=== PATIENT | male | born 1960 | race Caucasian/White ===

== ENCOUNTER 2018-08-27 11:08 | Emergency (ER) | payer OTHER, SELFPAY ==
[2018-08-27 11:11] VITALS: BP 183/98; PULSE 78; RESP 18; TEMP 37.2; O2SAT 99; BMI 29.8
[2018-08-27 11:54] LABS: Add Manual Diff / Slide Review NO; Eosinophils Percent Auto 1.3 % (2-4); Hematocrit 47.6 % (41-53); Hemoglobin 16.8 g/dL (13.5-17.5); Lymphocytes Percent Auto 26.1 % (25-40); Mean Corpuscular HGB Conc 35.2 % (30-36); Mean Corpuscular Hemoglobin 34.9 PG (26-34); Mean Corpuscular Volume 99.1 fL (80-100); Monocytes Percent Auto 8.4 % (3-14); Neutrophils Absolute Auto 5100 /uL (3000-5900); Neutrophils Percent Auto 63.2 % (50-75); Platelet Count 145 X10^3/uL (150-400); Red Cell Distribution Width 12.8 % (11.6-14.8); White Blood Cell Count 8.1 X10^3/uL (4.5-11.0)
[2018-08-27 11:55] LABS: Prothrombin Time 10.6 SECONDS (10.1-12.7)
[2018-08-27] MEDS: PANTOPRAZOLE 40 MG VIAL IV (11:55)
[2018-08-27 11:58] LABS: PTT Partial Thromboplastin Tim 29 SECONDS (26.4-36.2)
[2018-08-27 12:00] LABS: Alanine Aminotransferase 60 IU/L (21-72); Albumin 4.8 g/dL (3.5-5.0); Albumin Globulin Ratio 1.5 (1.0-2.8); Alkaline Phosphatase 72 U/L (38-126); Aspartate Aminotransferase 53 IU/L (17-59); Bilirubin Total 1.3 mg/dL (0.2-1.3); Blood Urea Nitrogen 14 mg/dL (9-20); Calcium 9.6 mg/dL (8.4-10.2); Carbon Dioxide 30 mmol/L (22-32); Chloride 103 mmol/L (98-107); Estimated Glomerular Filt Rate > 60.0 mL/min (>60); Globulin 3.2 g/dL (1.7-4.1); Glucose 97 mg/dL (70-100); HEMOLYSIS < 15 (0-50); Sodium 143 mmol/L (137-145)
--- NOTE | 2018-08-27 12:07 | ED.ABDPAIN ---
HPI - Abdominal Pain General Chief Complaint: Abdominal Pain Stated Complaint: VOMITING/BLOOD IN STOOL Time Seen by Provider: 08/27/18 11:18 Source: patient Mode of arrival: ambulatory Limitations: no limitations History of Present Illness HPI narrative: Patient is a 57-year-old male who presents with on rectal bleeding. He thought he had food poisoning last night he threw up 1 time and then he had 2 episodes of diarrhea. He said he did not look at the toilet at that time. This morning he had another episode of cramping and diarrhea a is bright red blood. No he did not have any hematemesis. He does drink on alcohol for vodka sodas a day. He also has been taking some ibuprofen but as prescribed for his back. He denies dizziness lightheadedness or shortness of breath MD complaint: abdominal pain Related Data Home Medications Medication Instructions Recorded Confirmed ibuprofen 400 mg PO QID PRN 08/27/18 08/27/18 omeprazole 20 mg PO DAILY 08/27/18 08/27/18 Allergies Allergy/AdvReac Type Severity Reaction Status Date / Time No Known Drug Allergies Allergy Verified 08/27/18 11:14 Review of Systems Review of Systems All systems reviewed & are unremarkable except as noted in HPI and below Constitutional Denies chills, Denies fever(s), Denies lethargy and Denies weakness Cardiovascular Denies chest pain, Denies irregular heart rhythm, Denies lightheadedness, Denies palpitations, Denies dyspnea, Denies dyspnea on exertion and Denies orthopnea Respiratory Denies cough, Denies dyspnea, Denies dyspnea on exertion and Denies wheezing Gastrointestinal Gastrointestinal: Reports as per HPI Genitourinary Denies hematuria, Denies flank pain, Denies urinary incontinence and Denies urinary urgency Musculoskeletal Denies back pain, Denies muscle weakness, Denies numbness and Denies tingling Integumentary/Breasts Denies pruritus, Denies erythema, Denies rash and Denies wounds Neurologic Denies numbness, Denies tingling and Denies weakness Endocrine Denies palpitations Allergic/Immunologic Denies wheezing PFSH Medical History Chronic back pain (Acute) Family History Father Diabetes mellitus Lupus Grandmother Colon cancer Social History Smoking Status: Never smoker Exam Initial Vital Signs Initial Vital Signs: Vital Signs Temperature 99.0 F 08/27/18 11:11 Pulse Rate 78 08/27/18 11:11 Respiratory Rate 18 09/29/18 11:11 Blood Pressure 183/98 H 08/27/18 11:11 Pulse Oximetry 99 08/27/18 11:11 Const General: cooperative and well developed Nutritional Appearance: well nourished Orientation: alert, awake, oriented x3 and not confused [facility] Head: normal to inspection and normocephalic Eyes General: appearance normal, both eyes and all related structures Neck Neck: normal visual inspection Chest Chest: normal inspection of the chest Resp Effort & Inspection: normal respiratory effort and able to speak in complete sentences Auscultation: clear to auscultation bilaterally Cardio Rate: regular rate Rhythm: regular rhythm Heart Sounds: S1 normal and S2 normal GI Rectal Exam: visual inspection normal and normal sphincter tone Other: No stool Back/Spine/Pelvis Back: normal to inspection Neuro General: alert, oriented x3, gait normal and no focal motor deficits Speech: speech normal Course Orders Ordered: ED Orders 08/27/18 11:35 Complete Blood Count AUTO DIFF Stat Comprehensive Metabolic Panel Stat Partial Thromboplastin Time Stat Prothrombin Time INR Stat Type and Screen Stat Discontinued Medications Pantoprazole Sodium (Protonix) 40 mg IV NOW ONE Stop: 08/27/18 11:47 Last Admin: 08/27/18 11:55 Dose: 40 mg Vital Signs - 8 hr 08/27/18 11:11 08/27/18 12:30 08/27/18 13:00 Temperature 99.0 F Pulse Rate 78 71 67 Respiratory Rate 18 15 20 Blood Pressure 183/98 H 152/87 H Blood Pressure [Left Arm] 157/91 H Pulse Oximetry 99 96 97 MDM - Abdominal Pain Lab Data Attestation: I reviewed the patient's lab results. Result diagrams: 08/27/18 11:35 08/27/18 11:35 Lab Results 08/27/18 08/27/18 08/27/18 Range/Units 11:35 11:35 11:35 WBC 8.1 (4.5-11.0) X10^3/uL RBC 4.80 (4.5-5.9) X10^6/uL Hgb 16.8 (13.5-17.5) g/dL Hct 47.6 (41-53) % MCV 99.1 (80-100) fL MCH 34.9 H (26-34) PG MCHC 35.2 (30-36) % RDW 12.8 (11.6-14.8) % Plt Count 145 L (150-400) X10^3/uL Neut % (Auto) 63.2 (50-75) % Lymph % (Auto) 26.1 (25-40) % [place] % (Auto) 8.4 (3-14) % Eos % (Auto) 1.3 L (2-4) % Baso % (Auto) 1.0 (0-2) % Neut # (Auto) 5100 (7181-7944) /uL PT 10.6 (10.1-12.7) SECONDS INR 1.0 (0.9-1.3) APTT 29 (26.4-36.2) SECONDS Sodium 143 (137-145) mmol/L Potassium 4.0 (3.4-5.1) mmol/L Chloride 103 (98-107) mmol/L Carbon Dioxide 30 (22-32) mmol/L BUN 14 (9-20) mg/dL Creatinine 1.00 (0.66-1.25) mg/dL Estimated GFR > 60.0 (>60) mL/min BUN/Creatinine Ratio 14.0 (6-22) Glucose 97 (70-100) mg/dL Calcium 9.6 (8.4-10.2) mg/dL Total Bilirubin 1.3 (0.2-1.3) mg/dL AST 53 (17-59) IU/L ALT 60 (21-72) IU/L Alkaline Phosphatase 72 (38-126) U/L Total Protein 8.0 (6.3-8.2) g/dL Albumin 4.8 (3.5-5.0) g/dL Globulin 3.2 (1.7-4.1) g/dL Albumin/Globulin Ratio 1.5 (1.0-2.8) Blood Type Antibody Screen 08/27/18 Range/Units 11:35 WBC (4.5-11.0) X10^3/uL RBC (4.5-5.9) X10^6/uL Hgb (13.5-17.5) g/dL Hct (41-53) % MCV (80-100) fL MCH (26-34) PG MCHC (30-36) % RDW (11.6-14.8) % Plt Count (150-400) X10^3/uL Neut % (Auto) (50-75) % Lymph % (Auto) (25-40) % [place] % (Auto) (3-14) % Eos % (Auto) (2-4) % Baso % (Auto) (0-2) % Neut # (Auto) (7656-2275) /uL PT (10.1-12.7) SECONDS INR (0.9-1.3) APTT (26.4-36.2) SECONDS Sodium (137-145) mmol/L Potassium (3.4-5.1) mmol/L Chloride (98-107) mmol/L Carbon Dioxide (22-32) mmol/L BUN (9-20) mg/dL Creatinine (0.66-1.25) mg/dL Estimated GFR (>60) mL/min BUN/Creatinine Ratio (6-22) Glucose (70-100) mg/dL Calcium (8.4-10.2) mg/dL Total Bilirubin (0.2-1.3) mg/dL AST (17-59) IU/L ALT (21-72) IU/L Alkaline Phosphatase (38-126) U/L Total Protein (6.3-8.2) g/dL Albumin (3.5-5.0) g/dL Globulin (1.7-4.1) g/dL Albumin/Globulin Ratio (1.0-2.8) Blood Type A Positive Antibody Screen Negative MDM Narrative Medical decision making narrative: Patient is hemodynamically stable hemoglobin hematocrit is are within normal limits. There was no blood in the rectum or signs of bleeding. No hemorrhoids. Discussed warning signs with patient and when to return to the ED. Patient is agreeable. Discharge Plan Departure Patient Disposition: Home Clinical Impression: Bright red rectal bleeding Discharge Date/Time: 08/27/18 13:01 Interventions: ED Discharge Assessment Last Done: 08/27/18 13:00 Instructions: Gastrointestinal Bleeding Activity Restrictions/Additional Instructions: *You have been diagnosed with rectal bleeding *What to do: At this time blood work and vitals are within normal limits. Recommend monitoring at home expect to have 1 or 2 more bloody episodes but really should start to decrease *Continue to take medications as directed -do not take ibuprofen while having rectal bleeding *Follow up with your primary care provider in 2-3 days *Return to ER if you should have significantly more bloody stool, dizziness, lightheadedness, shortness of breath [or] any new, worsening or concerning symptoms Prescriptions: No Action ibuprofen 400 mg Tablet 400 mg PO QID PRN (Reason: Back Pain) RF: 0 omeprazole 20 mg Capsule,Delayed Release(Dr/Ec) 20 mg PO DAILY RF: 0 Referrals: Renato Don ARNP [Primary Care Provider] -
[2018-08-27 12:30] VITALS: BP 157/91; PULSE 71; RESP 15; O2SAT 96
[2018-08-27 13:00] VITALS: BP 152/87; PULSE 67; RESP 20; O2SAT 97
== END 2018-08-27 13:01 | disposition home or self-care (01) ==
PROVIDERS: Emergency Provider Emergency Medicine; PCP Nurse Practitioner
DX: K62.5 Hemorrhage of anus and rectum (principal)
CPT/HCPCS: 36591; 80053; 85025; 85610; 85730; 86850; 86900; 86901; 96374; 99282; 99284; C9113

== ENCOUNTER 2018-11-18 07:45 | Day surgery (SDC) | payer OTHER, SELFPAY ==
--- NOTE | 2018-11-18 | PATH_ITS ---
[facility] Accession Number: [id number] . 01 Material submitted: . HEPATIC FLEXURE POLYP . 02 Diagnosis: Hepatic Flexure Polyp: Small serrated lesion, favor sessile serrated adenoma. [facility]/11/21/2018 . 02 Electronically signed: . Jack Palomino MD, PhD, Pathologist NPI- [id number] . 01 Gross description: . Received in one formalin-filled container labeled with the patient's name and labeled hepatic flexure polyp, are four less than 0.1 cm to 0.4 cm portions of tissue, entirely submitted in one cassette. ([id number]) /FRR . 02 Pathologist provided ICD-10: D12.3 . 02 CPT . 696646 Performed at: 01 [facility] [address] [id number] MD Chris Barone MD Phone: [phone] Performed at: 02 [facility] [address] [place] [id number] MD Chanel Anna MD Phone: [phone]
[2018-11-18 08:02] VITALS: BP 153/103; PULSE 86; RESP 12; TEMP 36.4; O2SAT 95; BMI 29.8
[2018-11-18 08:09] VITALS: BMI 29.8
[2018-11-18] MEDS: SODIUM CHLORIDE 0.9% 1,000 ML 200 ML IV (09:24)
--- NOTE | 2018-11-18 09:24 | PM.HP.1 ---
History of Present Illness Date Patient Seen: 11/18/18 Time Patient Seen: 09:24 Chief complaint: colonoscopy; [id number] Narrative: Patient is a gentleman here for a screening colonoscopy. He has some rectal bleeding. It is intermittent. He thinks he may have hemorrhoids. First colonoscopy Patient History Medical History Chronic back pain (Chronic) HTN (hypertension) (Chronic) Surgical History H/O hemorrhoidectomy (Resolved) Family & Social History Family History: Reviewed 11/18/18 by Nakul Prather MD Social History: household members children Tobacco & Substance use: Smoking Status Never smoker alcohol intake current alcohol intake frequency 3 or more drinks per day Substance Use Type does not use Meds Home Medications Medication Instructions Recorded Confirmed Type ibuprofen 400 mg PO QID PRN 08/27/18 11/18/18 History omeprazole 20 mg PO DAILY 08/27/18 11/18/18 History lisinopril 10 mg PO DAILY 11/18/18 11/18/18 History Allergies Allergy/AdvReac Type Severity Reaction Status Date / Time No Known Drug Allergies Allergy Verified 08/27/18 11:14 Review of Systems Review of Systems All systems reviewed & are unremarkable except as noted in HPI and below Cardiovascular Comments: Has hypertension Gastrointestinal Comments: Has reflux disease Exam Vital Signs (past 8 hours): - 11/18/18 08:02 Temperature 97.5 F L Pulse Rate 86 Respiratory Rate 12 Blood Pressure 153/103 H Pulse Oximetry 95 Oxygen Delivery Method Room Air Narrative Exam Narrative: Co Operative no apparent distress. Lungs are clear to auscultation no rales or rhonchi. Heart regular rate and rhythm without murmur gallop. Abdomen is soft nontender without mass. Alert and oriented x3. Assessment & Plan Plan: Assessment/Plan Narrative: Patient for screening colonoscopy/the evaluation for rectal bleeding. This is his 1st exam. I have discussed the procedure and the rationale with the patient including risks of bleeding, perforation which would necessitate a major operation, failure to find remove all lesions and the potential to tattoo. They appeared to understand and wished to proceed.
--- NOTE | 2018-11-18 09:27 | PM.PREOP ---
Pre-operative Note Interval Note Pre-op Check: Yes History & Physical exam performed today by Physician Changes: No ASA Class (for procedural sedation): II
--- NOTE | 2018-11-18 09:58 | PM.OP.ENDO ---
Operative Date/Time/Diagnoses Date of procedure: 11/18/18 Time of procedure: 09:58 Pre-op diagnosis: Screening examination. History of rectal bleeding. Post-op diagnosis: same (Removed 1 polyp in the hepatic flexure. Appeared benign. Increased sphincter tone. Suspect patient may have an intermittent fissure.) Procedure & Clinicians Study performed: Colonoscopy with cold biopsy Same procedure as scheduled: Yes Indications: Rectal bleeding. Screening. Surgeon: Nakul Prather Procedure Notes SCOAP/Timeout: Performed Procedure in detail: The patient was placed in the left lateral decubitus position and underwent IV sedation directed by the surgeon consisting of fentanyl and Versed. Digital exam was remarkable for a very tight sphincter. I was unable to feel his prostate at all. I could not really examine him visually very well because he clenched his buttock cheeks as well as his anus. This was despite sedation. The scope was inserted and advanced through the rectum into the sigmoid, descending, transverse, and ascending colon. Patient was noted to have sigmoid diverticulosis. Near the hepatic flexure there was a small polyp like lesion covered in mucus. I biopsied and completely removed it. Pressure was applied.. The cecum was reached identified by the ileocecal valve and the appendiceal opening. The scope was gradually brought out. No other Polyps were found. The scope ultimately was retroflexed in the rectum. The anus had a normal appearance. The scope was removed and the patient tolerated the procedure well. Though I could not visualize it well I suspect the patient may have an intermittent fissure causing his blood on the tissue. No polypoid or other lesions were seen that would explain it. Scope withdrawal time: Ten and 0.5 min Sedation minutes: 30 Findings: diverticulosis (Sigmoid) and polyp (Hepatic flexure) Specimen(s): other (Polyp) Complications: none Recommendations: Colonscopy in 5 years (Unless this polyp is not neoplastic. In that case 10 years would be more appropriate.) Follow up: as needed Disposition: PACU
[2018-11-18] MEDS: MIDAZOLAM 5 MG/5 ML VIAL IV (09:59)
[2018-11-18] MEDS: fentaNYL 250 MCG/5 ML INJ IV (10:00)
[2018-11-18 10:02] VITALS: BP 122/92; PULSE 80; RESP 15; TEMP 37.3; O2SAT 96
[2018-11-18 10:10] VITALS: BP 126/88; PULSE 87; RESP 16; TEMP 37.1; O2SAT 97
== END 2018-11-18 10:31 | disposition home or self-care (01) ==
PROVIDERS: PCP Family Medicine; Visit Provider Specialist
PROC: 0DJD8ZZ Inspection of Lower Intestinal Tract, Via Natural or Artificial Opening Endoscopic (ICD-10-PCS; CPT 45378; principal; 2018-11-18 08:45)
DX: K62.5 Hemorrhage of anus and rectum (principal); K57.30 Diverticulosis of large intestine without perforation or abscess without bleeding; I10 Essential (primary) hypertension; D12.3 Benign neoplasm of transverse colon
CPT/HCPCS: 45380; 99152; 99153; J2250; J3010

== ENCOUNTER → 2019-02-21 14:01 | Outpatient (CLI) | payer OTHER, SELFPAY ==
--- NOTE | 2019-02-21 | DI.RAD.S_ITS ---
PROCEDURE: XR THORACIC SPINE 3V INDICATIONS: BACK PAIN BETWEEN SHOULDER BLADES TECHNIQUE: 3 views of the thoracic spine were acquired. COMPARISON: None. FINDINGS: Bones: No fractures or dislocations. No suspicious bony lesions. 12 pairs of ribs are noted, and appear intact where visualized. Small degenerative bridging osteophytes in the lower thoracic spine. Soft tissues: No paravertebral stripe thickening. IMPRESSION: Normally aligned thoracic spine without suspicious lesions or fractures. Mild degenerative changes. Dictated by: Haven Meléndez M.D. on 02/21/2019 at 15:07 Approved by: Haven Meléndez M.D. on 02/21/2019 at 15:08
== END ==
PROVIDERS: PCP Family Medicine; Visit Provider Family Medicine
DX: M54.6 Pain in thoracic spine (principal); M47.814 Spondylosis without myelopathy or radiculopathy, thoracic region
CPT/HCPCS: 72072

== ENCOUNTER → 2021-01-01 15:16 | Outpatient (CLI) | payer OTHER, SELFPAY ==
[2021-01-01 15:55] LABS: COVID19 -Nasal RAPID Negative (Negative)
== END ==
PROVIDERS: PCP Student in an Organized Health Care Education/Training Program; Visit Provider Physician Assistant
DX: Z20.822 Contact with and (suspected) exposure to COVID-19 (principal); J02.9 Acute pharyngitis, unspecified
CPT/HCPCS: 87070; 87635

== ENCOUNTER → 2021-01-14 12:57 | Outpatient (CLI) | payer OTHER, SELFPAY ==
[2021-01-14 14:15] LABS: Add Manual Diff / Slide Review NO; Basophils Absolute Auto 0 /uL (0-100); Basophils Percent Auto 0.5 % (0-2); Eosinophils Absolute Auto 0 /uL (0-450); Eosinophils Percent Auto 0.4 % (2-4); Hematocrit 47.5 % (41-53); Hemoglobin 16.5 g/dL (13.5-17.5); Lymphocytes Absolute Auto 900 /uL (1100-4500); Lymphocytes Percent Auto 10.7 % (25-40); Mean Corpuscular HGB Conc 34.7 % (30-36); Mean Corpuscular Hemoglobin 34.5 PG (26-34); Mean Corpuscular Volume 99.5 fL (80-100); Monocytes Absolute Auto 700 /uL (0-900); Neutrophils Absolute Auto 6400 /uL (1500-7000); Neutrophils Percent Auto 79.4 % (50-75); Platelet Count 88 X10^3/uL (150-400); Red Blood Cell Count 4.77 X10^6/uL (4.5-5.9); Red Cell Distribution Width 16.8 % (11.6-14.8); White Blood Cell Count 8.1 X10^3/uL (4.5-11.0)
== END ==
PROVIDERS: PCP Student in an Organized Health Care Education/Training Program; Referring Provider Student in an Organized Health Care Education/Training Program; Visit Provider Student in an Organized Health Care Education/Training Program
DX: D69.6 Thrombocytopenia, unspecified (principal); I10 Essential (primary) hypertension
CPT/HCPCS: 36415; 85025

== ENCOUNTER 2021-04-26 16:38 | Emergency (ER) | payer OTHER, SELFPAY ==
[2021-04-26] VITALS (19 sets, daily range): BP systolic 124–173; BP diastolic 71–96; PULSE 70–92; RESP 12–31; TEMP 36.8; O2SAT 91–98
--- NOTE | 2021-04-26 17:07 | DI.CT.S_ITS ---
PROCEDURE: CT HEAD/BRAIN WO CON INDICATIONS: decreased LOC head injury TECHNIQUE: Noncontrast 4.5 mm thick angled axial sections acquired from the foramen magnum to the vertex, with coronal and sagittal reformats. For radiation dose reduction, the following was used: automated exposure control, adjustment of mA and/or kV according to patient size. COMPARISON: None. FINDINGS: Image quality: This examination is limited by involuntary motion artifact. CSF spaces: Basal cisterns are patent. No extra-axial fluid collections. Ventricles are normal in size and shape. Brain: No midline shift. No intracranial masses or hemorrhage. Christianson-white matter interface is normal. Skull and face: Calvarium and visualized facial bones are intact, without suspicious lesions. Sinuses: Visualized sinuses and mastoids are clear. IMPRESSION: Limited study demonstrating no intracranial hemorrhage or other acute intracranial abnormality. Dictated by: Theo Delaney M.D. on 04/26/2021 at 16:31 Approved by: Theo Delaney M.D. on 04/26/2021 at 16:32
[2021-04-26 17:23] LABS: Add Manual Diff / Slide Review NO; Basophils Absolute Auto 100 /uL (0-100); Basophils Percent Auto 1.5 % (0-2); Eosinophils Absolute Auto 100 /uL (0-450); Eosinophils Percent Auto 1.4 % (2-4); Hematocrit 44.4 % (41-53); Hemoglobin 15.5 g/dL (13.5-17.5); Lymphocytes Absolute Auto 1700 /uL (1100-4500); Lymphocytes Percent Auto 33.2 % (25-40); Mean Corpuscular HGB Conc 34.9 % (30-36); Mean Corpuscular Volume 103.2 fL (80-100); Monocytes Absolute Auto 400 /uL (0-900); Monocytes Percent Auto 7.1 % (3-14); Neutrophils Absolute Auto 2800 /uL (1500-7000); Neutrophils Percent Auto 56.8 % (50-75); Platelet Count 117 X10^3/uL (150-400); Red Blood Cell Count 4.31 X10^6/uL (4.5-5.9); Red Cell Distribution Width 13.6 % (11.6-14.8)
--- NOTE | 2021-04-26 17:30 | PC.NURSE ---
Nasal trumpet placed by RT to keep sats above 92%. Haynes placed per MD order. Soft restraints to wrists to keep pt from pulling nasal trumpet. Pt intermittently opens eyes, speech slurred and hard to understand. Son Glenn at bedside. Reports that pt was texting him today and then called and told son to come to ED.
[2021-04-26 17:31] LABS: Alanine Aminotransferase 53 IU/L (<50); Albumin 4.5 g/dL (3.5-5.0); Albumin Globulin Ratio 1.5 (1.0-2.8); Alkaline Phosphatase 69 U/L (38-126); Aspartate Aminotransferase 73 IU/L (17-59); BUN Creatinine Ratio 12.4 (6-22); Bilirubin Total 0.5 mg/dL (0.2-1.3); Blood Urea Nitrogen 11 mg/dL (9-20); Calcium 9.3 mg/dL (8.4-10.2); Carbon Dioxide 24 mmol/L (22-32); Chloride 104 mmol/L (98-107); Creatine Kinase 252 U/L (55-170); Estimated Glomerular Filt Rate > 60.0 mL/min (>60); Ethanol (ETOH) 193 mg/dL; Globulin 3.1 g/dL (1.7-4.1); Glucose 125 mg/dL (70-100); HEMOLYSIS < 15 (0-50); Potassium 3.6 mmol/L (3.4-5.1); Sodium 140 mmol/L (137-145); Total Protein 7.6 g/dL (6.3-8.2)
[2021-04-26 17:42] LABS: Troponin I < 0.012 ng/mL (0.01-0.034)
[2021-04-26 17:46] LABS: CKMB % Relative Index 0.4 % (1.5-5.0); Creatine Kinase MB 1.01 ng/mL (<2.37)
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
[2021-04-26 18:34] LABS: UR Morphine/Opiate cutoff 300 Negative (Negative); Ur Creatinine Normal (Normal); Ur Specific Gravity Normal (Normal); Urine Amphetamines Negative (Negative); Urine Barbiturates Negative (Negative); Urine Benzodiazepines Negative (Negative); Urine Cocaine Negative (Negative); Urine MDMA Negative (Negative); Urine Methadone Negative (Negative); Urine Methamphetamines Negative (Negative); Urine Oxycodone Negative (Negative); Urine Phencyclidine Negative (Negative); Urine Tetrahydrocannabinol Negative (Negative); Urine Tricyclic Antidepressant Negative (Negative); Urine pH Normal (Normal)
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
[2021-04-27] VITALS (28 sets, daily range): BP systolic 126–161; BP diastolic 65–99; PULSE 68–104; RESP 12–33; O2SAT 92–99
--- NOTE | 2021-04-27 00:58 | PC.NURSE ---
Pt more alert/awake. Nasal trumpet/soft wrist restraints removed. Pt denies pain. Thought he was at the sleep center, reoriented to place. Pt turns over and does not answer when asked what happened today. MD notified of pt being more awake.
--- NOTE | 2021-04-27 05:31 | PC.NURSE ---
Pt repeatedly adjusting in bed. wakes up on occasion then falls back to sleep.
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
[2021-04-27] MEDS: LORazepam 2 MG/ML INJ 1 MG IV (09:29)
--- NOTE | 2021-04-27 09:51 | PC.NURSE ---
Patient sleeping, resp even and unlabored.
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
--- NOTE | 2021-04-27 11:32 | PC.NURSE ---
Pt okayed for us to try to contact either his , Norma, or his son, Nacho; he gave us numbers for both. Voice mail left at both numbers. Nacho called back and stated that he would come to flower picker his father but wanted to bring a police manager along. Christen, rougher for cement and [place] pt's primary RN informed.
--- NOTE | 2021-04-27 12:00 | PC.NURSE ---
Patient unsteady in room, incontinent of urine on floor. Leah. Patient CIWA 10. brought to bedside, discussion with patient regarding safety and withdrawal.
--- NOTE | 2021-04-27 12:00 | PC.NURSE ---
Assisted patient with calling dennis Elizabeth.
--- NOTE | 2021-04-27 12:22 | PC.NURSE ---
Permission from patient to speak with son Glenn. Glenn on his way to get patient after discussion with patient, RN and Doc. It has been highly suggested that patient stay in hospital over night for withdrawls from alcohol however patient does not wish to stay. Patient provided with several outpatient resources from [facility].
--- NOTE | 2021-04-27 12:31 | PC.NURSE ---
arrived to department to speak with patient. Patient gives permission for deputy to come back to the room and speak with him.
--- NOTE | 2021-04-27 13:23 | PC.NURSE ---
[facility] department completed evaluation with patient. patient declines medical release of information, or release clothing to deputy. Patient wanting to go home. Son has not showed for ride home at this time. Patient continues to be unsteady on feet.
--- NOTE | 2021-04-27 13:31 | PC.NURSE ---
Called son to confirm ETA for ride home.
--- NOTE | 2021-04-27 14:04 | PC.NURSE ---
late note, removed huizar catheter at 0845. pulled the 10ml to deflate balloon, removed the tube, pt tolerated well.
== END 2021-04-27 13:57 | disposition left against medical advice (07) ==
PROVIDERS: Emergency Provider Emergency Medicine; PCP Family Medicine
DX: S01.01XA Laceration without foreign body of scalp, initial encounter (principal); F32.9 Major depressive disorder, single episode, unspecified; F10.129 Alcohol abuse with intoxication, unspecified; Y90.6 Blood alcohol level of 120-199 mg/100 ml; Y09 Assault by unspecified means
CPT/HCPCS: 36415; 70450; 80053; 80305; 80320; 82550; 82553; 84484; 85025; 93005; 96374; 99285; J2060

== ENCOUNTER → 2021-06-10 14:03 | Outpatient (CLI) | payer OTHER, SELFPAY ==
--- NOTE | 2021-06-10 14:06 | DI.RAD.S_ITS ---
PROCEDURE: XR CHEST 2V INDICATIONS: Cough TECHNIQUE: 2 views of the chest were acquired. COMPARISON: None. FINDINGS: Surgical changes and devices: None. Lungs and pleura: Lungs are clear. No pleural effusions or pneumothorax. Mediastinum: Mediastinal contours are normal. Heart size is normal. Bones and chest wall: No suspicious bony abnormalities. Soft tissues appear unremarkable. IMPRESSION: No acute cardiopulmonary process demonstrated radiographically. Dictated by: Raul Rosas M.D. on 06/10/2021 at 14:41 Approved by: Raul Rosas M.D. on 06/10/2021 at 14:41
== END ==
PROVIDERS: PCP Family Medicine; Referring Provider Family Medicine; Visit Provider Family Medicine
DX: J40 Bronchitis, not specified as acute or chronic (principal); R05 Cough
CPT/HCPCS: 71046

== ENCOUNTER → 2021-07-24 09:33 | Outpatient (CLI) | payer OTHER, SELFPAY ==
--- NOTE | 2021-07-24 09:34 | DI.US.S_ITS ---
PROCEDURE: US CAROTID DOPPLER BI INDICATIONS: CALCIFICATION OF BOTH ARTERIES TECHNIQUE: Color and pulse Doppler interrogation was performed of both carotid systems, with image documentation and velocity measurements. COMPARISON: None. FINDINGS: Stenosis calculations are based on SRU (Society of Radiologists in Ultrasound) criteria. Right side: Brachial blood pressure: 134/88 mm Hg. Common carotid artery peak systolic velocity: 87 cm/sec. Internal carotid artery peak systolic velocity: 52 cm/sec. Internal carotid artery end diastolic velocity: 24 cm/sec. External carotid artery peak systolic velocity: 64 cm/sec. ICA/CCA peak systolic ratio: 0.6 . Christianson scale imaging description: Mild scattered plaque. Percent internal carotid artery stenosis: Less than 50% . Vertebral artery: Flow direction is antegrade. Left side: Brachial blood pressure: 149/97 mm Hg. Common carotid artery peak systolic velocity: 81 cm/sec. Internal carotid artery peak systolic velocity: 74 cm/sec. Internal carotid artery end diastolic velocity: 29 cm/sec. External carotid artery peak systolic velocity: 64 cm/sec. ICA/CCA peak systolic ratio: 0.9 . Christianson scale imaging description: Mild scattered plaque. Percent internal carotid artery stenosis: Less than 50% . Vertebral artery: Flow direction is antegrade. IMPRESSION: Less than 50% bilateral internal carotid artery stenosis. Dictated by: Maninder Cespedes [facility] Interpreted: Rinku Worthy MD on 07/24/2021 at 11:04 Transcribed by: DASIA on 07/24/2021 at 11:05 Approved by: Mat Worthy M.D. on 07/28/2021 at 9:37
== END ==
PROVIDERS: PCP Family Medicine; Referring Provider Family Medicine; Visit Provider Family Medicine
DX: I65.23 Occlusion and stenosis of bilateral carotid arteries (principal)
CPT/HCPCS: 93880

== ENCOUNTER → 2021-09-12 09:14 | Outpatient (CLI) | payer OTHER, SELFPAY ==
[2021-09-12 10:35] LABS: Add Manual Diff / Slide Review NO; Basophils Absolute Auto 0 /uL (0-100); Basophils Percent Auto 0.9 % (0-2); Eosinophils Absolute Auto 100 /uL (0-450); Eosinophils Percent Auto 2.6 % (2-4); Hematocrit 45.3 % (41-53); Hemoglobin 15.3 g/dL (13.5-17.5); Lymphocytes Absolute Auto 1400 /uL (1100-4500); Lymphocytes Percent Auto 27.3 % (25-40); Mean Corpuscular HGB Conc 33.9 % (30-36); Mean Corpuscular Hemoglobin 34.1 PG (26-34); Mean Corpuscular Volume 100.6 fL (80-100); Monocytes Absolute Auto 500 /uL (0-900); Monocytes Percent Auto 9.3 % (3-14); Neutrophils Absolute Auto 3000 /uL (1500-7000); Neutrophils Percent Auto 59.9 % (50-75); Platelet Count 138 X10^3/uL (150-400); Red Cell Distribution Width 13.2 % (11.6-14.8); White Blood Cell Count 5.1 X10^3/uL (4.5-11.0)
[2021-09-12 11:14] LABS: UR Morphine/Opiate cutoff 300 Negative (Negative); Ur Creatinine Normal (Normal); Ur Specific Gravity Normal (Normal); Urine Amphetamines Negative (Negative); Urine Barbiturates Negative (Negative); Urine Benzodiazepines Positive (Negative); Urine Cocaine Negative (Negative); Urine MDMA Negative (Negative); Urine Methadone Negative (Negative); Urine Methamphetamines Negative (Negative); Urine Oxycodone Negative (Negative); Urine Phencyclidine Negative (Negative); Urine Tetrahydrocannabinol Negative (Negative); Urine Tricyclic Antidepressant Negative (Negative); Urine pH Normal (Normal)
[2021-09-12 11:23] LABS: Alanine Aminotransferase 39 IU/L (<50); Albumin 4.3 g/dL (3.5-5.0); Albumin Globulin Ratio 1.6 (1.0-2.8); Alkaline Phosphatase 63 U/L (38-126); Aspartate Aminotransferase 38 IU/L (17-59); BUN Creatinine Ratio 14.6 (6-22); Bilirubin Total 0.7 mg/dL (0.2-1.3); Blood Urea Nitrogen 12 mg/dL (9-20); Calcium 9.7 mg/dL (8.4-10.2); Carbon Dioxide 26 mmol/L (22-32); Chloride 104 mmol/L (98-107); Cholesterol 161 mg/dL (140-199); Estimated Glomerular Filt Rate > 60.0 mL/min (>60); Globulin 2.7 g/dL (1.7-4.1); Glucose 94 mg/dL (70-100); HDL Cholesterol 56 mg/dL (40-60); HEMOLYSIS < 15 (0-50); LDL Cholesterol Calculated 87 mg/dL (<100); Potassium 4.4 mmol/L (3.4-5.1); Sodium 139 mmol/L (137-145); Triglycerides 90 mg/dL (35-150)
[2021-09-12 11:39] LABS: Vitamin D 25 Hydroxy (D3) 42.3 ng/mL (30.0-100.0)
[2021-09-12 11:45] LABS: Free T3, Triiodothyronine Free 4.01 pg/mL (2.77-5.27)
[2021-09-12 11:59] LABS: Thyroid Stimulating Hormone 1.89 uIU/mL (0.47-4.68)
[2021-09-12 14:03] LABS: Free T4, Direct Thyroxine 1.25 ng/dL (0.78-2.19)
== END ==
PROVIDERS: PCP Family Medicine; Referring Provider Family Medicine; Visit Provider Family Medicine
DX: F10.20 Alcohol dependence, uncomplicated (principal); E03.9 Hypothyroidism, unspecified; Z86.79 Personal history of other diseases of the circulatory system
CPT/HCPCS: 36415; 80053; 80061; 80305; 82306; 84439; 84443; 84481; 85025

== ENCOUNTER → 2021-10-14 10:39 | Outpatient (CLI) | payer OTHER, SELFPAY | PROVIDERS: PCP Family Medicine; Referring Provider Preventive Medicine Addiction Medicine; Visit Provider Preventive Medicine Addiction Medicine | DX: F10.20 Alcohol dependence, uncomplicated (principal) | CPT/HCPCS: 80307 ==

== ENCOUNTER → 2021-11-17 14:10 | Outpatient (CLI) | payer OTHER, SELFPAY ==
[2021-11-24 10:45] LABS: Ethyl Glucuronide Screen Negative ng/mL (Cutoff=500)
== END ==
PROVIDERS: PCP Family Medicine; Referring Provider Preventive Medicine Addiction Medicine; Visit Provider Preventive Medicine Addiction Medicine
DX: F10.20 Alcohol dependence, uncomplicated (principal)
CPT/HCPCS: 80321

== ENCOUNTER → 2021-12-11 15:33 | Outpatient (CLI) | payer OTHER, SELFPAY ==
[2021-12-16 08:14] LABS: Ethyl Glucuronide Screen Negative ng/mL (Cutoff=500)
== END ==
PROVIDERS: PCP Family Medicine; Referring Provider Preventive Medicine Addiction Medicine; Visit Provider Preventive Medicine Addiction Medicine
DX: F10.20 Alcohol dependence, uncomplicated (principal)
CPT/HCPCS: 80321

== ENCOUNTER → 2022-01-12 12:36 | Outpatient (CLI) | payer OTHER, SELFPAY ==
[2022-01-14 13:46] LABS: Ethyl Glucuronide Screen Negative ng/mL (Cutoff=500)
== END ==
PROVIDERS: PCP Family Medicine; Referring Provider Preventive Medicine Addiction Medicine; Visit Provider Preventive Medicine Addiction Medicine
DX: F10.20 Alcohol dependence, uncomplicated (principal)
CPT/HCPCS: 80321

== ENCOUNTER → 2022-02-09 11:29 | Outpatient (CLI) | payer OTHER, SELFPAY ==
[2022-02-11 10:51] LABS: Ethyl Glucuronide Screen Negative ng/mL (Cutoff=500)
== END ==
PROVIDERS: PCP Family Medicine; Referring Provider Preventive Medicine Addiction Medicine; Visit Provider Preventive Medicine Addiction Medicine
DX: F10.20 Alcohol dependence, uncomplicated (principal)
CPT/HCPCS: 80321

== ENCOUNTER → 2022-02-19 10:38 | Outpatient (CLI) | payer OTHER, SELFPAY ==
--- NOTE | 2022-02-19 10:40 | DI.RAD.S_ITS ---
PROCEDURE: XR THORACIC SPINE 2V INDICATIONS: pain lower C-spine/upper T-spine, no trauma TECHNIQUE: 2 views of the thoracic spine were acquired. COMPARISON: [facility], CR, XR CERVICAL SPINE 2V OR 3V, 02/19/2022, 10:32. [facility], CR, XR THORACIC SPINE 3V, 02/21/2019, 14:08. FINDINGS: Bones: No fractures or dislocations. No suspicious bony lesions. 12 pairs of ribs are noted, and appear intact where visualized. Age-appropriate bony degenerative changes are seen. There is minimal dextroconvex scoliotic curvature. Soft tissues: No paravertebral stripe thickening. IMPRESSION: Age-appropriate degenerative changes can be seen by plain film. Dictated by: Theo Delaney M.D. on 02/19/2022 at 9:58 Approved by: Theo Delaney M.D. on 02/19/2022 at 10:00
--- NOTE | 2022-02-19 10:40 | DI.RAD.S_ITS ---
PROCEDURE: XR CERVICAL SPINE 2V OR 3V INDICATIONS: pain lower C-spine/upper T-spine, no trauma TECHNIQUE: 3 view(s) of the cervical spine were acquired. COMPARISON: [facility], , XR THORACIC SPINE 2V, 02/19/2022, 10:32. FINDINGS: Bones: No fractures or dislocations to the T1 level. The lateral masses of C1 appear intact on the odontoid view. No suspicious bony lesions. There is mild disc space narrowing seen at C5-C6, with moderate disc space narrowing at C6-C7. Bridging anterior osteophytes are seen C5 through C7. Milder degenerative changes are seen elsewhere. Soft tissues: No prevertebral soft tissue swelling. The visualized lung apices are unremarkable. IMPRESSION: Focal lower cervical spine degenerative changes are seen. If it would be helpful for clinical management decision making, please consider a dedicated cervical spine MRI for further evaluation (assuming that there is no contraindication). Dictated by: Theo Delaney M.D. on 02/19/2022 at 10:00 Approved by: Theo Delaney M.D. on 02/19/2022 at 10:01
== END ==
PROVIDERS: PCP Family Medicine; Referring Provider Registered Nurse Diabetes Educator; Visit Provider Registered Nurse Diabetes Educator
DX: M47.812 Spondylosis without myelopathy or radiculopathy, cervical region (principal); M47.814 Spondylosis without myelopathy or radiculopathy, thoracic region; M54.2 Cervicalgia; M54.9 Dorsalgia, unspecified
CPT/HCPCS: 72040; 72070

== ENCOUNTER → 2022-03-23 13:23 | Outpatient (CLI) | payer OTHER, SELFPAY ==
[2022-03-25 07:44] LABS: Ethyl Glucuronide Screen Negative ng/mL (Cutoff=500)
== END ==
PROVIDERS: PCP Family Medicine; Referring Provider Preventive Medicine Addiction Medicine; Visit Provider Preventive Medicine Addiction Medicine
DX: F10.20 Alcohol dependence, uncomplicated (principal)
CPT/HCPCS: 80321

== ENCOUNTER → 2022-05-01 13:36 | Outpatient (CLI) | payer OTHER, SELFPAY | PROVIDERS: PCP Family Medicine; Referring Provider Preventive Medicine Addiction Medicine; Visit Provider Preventive Medicine Addiction Medicine | DX: F10.20 Alcohol dependence, uncomplicated (principal) | CPT/HCPCS: 80321 ==

== ENCOUNTER → 2022-09-29 07:09 | Outpatient (CLI) | payer OTHER, SELFPAY ==
[2022-09-29 09:03] LABS: Add Manual Diff / Slide Review NO; Basophils Absolute Auto 0 /uL (0-100); Basophils Percent Auto 0.7 % (0-2); Eosinophils Absolute Auto 100 /uL (0-450); Eosinophils Percent Auto 2.6 % (2-4); Hematocrit 44.1 % (41-53); Hemoglobin 15.1 g/dL (13.5-17.5); Lymphocytes Absolute Auto 1900 /uL (1100-4500); Mean Corpuscular HGB Conc 34.3 % (30-36); Mean Corpuscular Hemoglobin 31.2 PG (26-34); Monocytes Absolute Auto 400 /uL (0-900); Monocytes Percent Auto 7.5 % (3-14); Neutrophils Absolute Auto 2900 /uL (1500-7000); Neutrophils Percent Auto 54.2 % (50-75); Platelet Count 137 X10^3/uL (150-400); Red Blood Cell Count 4.84 X10^6/uL (4.5-5.9); Red Cell Distribution Width 12.5 % (11.6-14.8); White Blood Cell Count 5.3 X10^3/uL (4.5-11.0)
[2022-09-29 09:20] LABS: Alanine Aminotransferase 20 IU/L (<50); Albumin 4.6 g/dL (3.5-5.0); Albumin Globulin Ratio 1.7 (1.0-2.8); Alkaline Phosphatase 57 U/L (38-126); Aspartate Aminotransferase 22 IU/L (17-59); BUN Creatinine Ratio 16.3 (6-22); Bilirubin Total 0.5 mg/dL (0.2-1.3); Blood Urea Nitrogen 15 mg/dL (9-20); Calcium 9.4 mg/dL (8.4-10.2); Carbon Dioxide 27 mmol/L (22-32); Chloride 104 mmol/L (98-107); Cholesterol 164 mg/dL (140-199); Estimated Glomerular Filt Rate > 60 mL/min (>60); Globulin 2.7 g/dL (1.7-4.1); Glucose 102 mg/dL (70-100); HDL Cholesterol 56 mg/dL (40-60); HEMOLYSIS < 15 (0-50); LDL Cholesterol Calculated 99 mg/dL (<100); Potassium 4.4 mmol/L (3.4-5.1); Sodium 141 mmol/L (137-145); Total Protein 7.3 g/dL (6.3-8.2); Triglycerides 47 mg/dL (35-150)
[2022-09-29 09:31] LABS: Free T3, Triiodothyronine Free 3.57 pg/mL (2.77-5.27); Free T4, Direct Thyroxine 1.35 ng/dL (0.78-2.19)
[2022-09-29 09:45] LABS: Thyroid Stimulating Hormone 1.83 uIU/mL (0.47-4.68)
[2022-10-03 18:19] LABS: Testosterone Free 26.07 ng/dL (5.00-21.00); Testosterone Total 1185.1 ng/dL (264.0-916.0)
== END ==
PROVIDERS: PCP Family Medicine; Referring Provider Family Medicine; Visit Provider Family Medicine
DX: D75.89 Other specified diseases of blood and blood-forming organs (principal); E03.9 Hypothyroidism, unspecified; F10.21 Alcohol dependence, in remission; F32.9 Major depressive disorder, single episode, unspecified; F98.8 Other specified behavioral and emotional disorders with onset usually occurring in childhood and adolescence; I65.23 Occlusion and stenosis of bilateral carotid arteries; Z86.79 Personal history of other diseases of the circulatory system
CPT/HCPCS: 36415; 80053; 80061; 84402; 84403; 84439; 84443; 84481; 85025

== ENCOUNTER → 2023-12-30 09:09 | Outpatient (CLI) | payer OTHER, SELFPAY ==
[2023-12-30 10:09] LABS: Add Manual Diff / Slide Review NO; Basophils Absolute Auto 100 /uL (0-100); Basophils Percent Auto 0.9 % (0-2); Eosinophils Absolute Auto 100 /uL (0-450); Eosinophils Percent Auto 1.4 % (2-4); Hematocrit 45.2 % (41-53); Hemoglobin 15.7 g/dL (13.5-17.5); Lymphocytes Absolute Auto 1900 /uL (1100-4500); Lymphocytes Percent Auto 27.5 % (25-40); Mean Corpuscular HGB Conc 34.8 % (30-36); Mean Corpuscular Hemoglobin 31.3 PG (26-34); Mean Corpuscular Volume 89.9 fL (80-100); Monocytes Absolute Auto 400 /uL (0-900); Monocytes Percent Auto 6.4 % (3-14); Neutrophils Absolute Auto 4300 /uL (1500-7000); Neutrophils Percent Auto 63.8 % (50-75); Platelet Count 162 X10^3/uL (150-400); Red Blood Cell Count 5.02 X10^6/uL (4.5-5.9); Red Cell Distribution Width 12.5 % (11.6-14.8); White Blood Cell Count 6.8 X10^3/uL (4.5-11.0)
[2023-12-30 10:34] LABS: Alanine Aminotransferase 21 IU/L (<50); Albumin 4.6 g/dL (3.5-5.0); Albumin Globulin Ratio 1.6 (1.0-2.8); Alkaline Phosphatase 53 U/L (38-126); Aspartate Aminotransferase 23 IU/L (17-59); BUN Creatinine Ratio 17.7 (6-22); Bilirubin Total 0.9 mg/dL (0.2-1.3); Blood Urea Nitrogen 17 mg/dL (9-20); Calcium 9.9 mg/dL (8.4-10.2); Carbon Dioxide 25 mmol/L (22-32); Chloride 103 mmol/L (98-107); Cholesterol 180 mg/dL (140-199); Estimated Glomerular Filt Rate > 60 mL/min (>60); Globulin 2.9 g/dL (1.7-4.1); Glucose 101 mg/dL (80-110); HDL Cholesterol 53 mg/dL (40-60); HEMOLYSIS < 15 (0-50); LDL Cholesterol Calculated 107 mg/dL (<100); Potassium 4.6 mmol/L (3.4-5.1); Sodium 137 mmol/L (137-145); Total Protein 7.5 g/dL (6.3-8.2); Triglycerides 100 mg/dL (35-150)
[2023-12-30 11:02] LABS: Prostate Specific Antigen Scrn 1.77 ng/mL (0.1-4.0)
[2023-12-30 11:04] LABS: TSH w/ Reflex to FT4 1.13 uIU/mL (0.47-4.68)
[2024-01-06 08:26] LABS: Percent Free Testosterone 1.37 % (1.50-4.20); Testosterone Total 868.3 ng/dL (264.0-916.0)
== END ==
PROVIDERS: PCP Family Medicine; Referring Provider Family Medicine; Visit Provider Family Medicine
DX: Z12.5 Encounter for screening for malignant neoplasm of prostate (principal); E03.9 Hypothyroidism, unspecified; D75.89 Other specified diseases of blood and blood-forming organs; R79.89 Other specified abnormal findings of blood chemistry; F98.8 Other specified behavioral and emotional disorders with onset usually occurring in childhood and adolescence; Z86.79 Personal history of other diseases of the circulatory system
CPT/HCPCS: 36415; 80053; 80061; 84402; 84403; 84443; 85025; G0103

== ENCOUNTER → 2025-01-23 11:47 | Outpatient (CLI) | payer OTHER, SELFPAY ==
[2025-01-23 12:58] LABS: Add Manual Diff / Slide Review NO; Basophils Absolute Auto 0 /uL (0-100); Basophils Percent Auto 0.6 % (0-2); Eosinophils Absolute Auto 100 /uL (0-450); Hematocrit 47.6 % (41-53); Hemoglobin 16.5 g/dL (13.5-17.5); Lymphocytes Absolute Auto 900 /uL (1100-4500); Lymphocytes Percent Auto 16.9 % (25-40); Mean Corpuscular HGB Conc 34.6 % (30-36); Mean Corpuscular Volume 100.9 fL (80-100); Monocytes Absolute Auto 500 /uL (0-900); Monocytes Percent Auto 8.6 % (3-14); Neutrophils Absolute Auto 4000 /uL (1500-7000); Neutrophils Percent Auto 72.9 % (50-75); Platelet Count 125 X10^3/uL (150-400); Red Blood Cell Count 4.72 X10^6/uL (4.5-5.9); Red Cell Distribution Width 13.6 % (11.6-14.8); White Blood Cell Count 5.5 X10^3/uL (4.5-11.0)
[2025-01-23 13:18] LABS: Alanine Aminotransferase 95 IU/L (<50); Albumin 5.3 g/dL (3.5-5.0); Albumin Globulin Ratio 1.8 (1.0-2.8); Alkaline Phosphatase 76 U/L (38-126); Aspartate Aminotransferase 119 IU/L (17-59); BUN Creatinine Ratio 16.5 (6-22); Bilirubin Total 1.4 mg/dL (0.2-1.3); Blood Urea Nitrogen 18 mg/dL (9-20); Calcium 9.7 mg/dL (8.4-10.2); Carbon Dioxide 20 mmol/L (22-32); Chloride 101 mmol/L (98-107); Cholesterol 200 mg/dL (140-199); Estimated Glomerular Filt Rate > 60 mL/min (>60); Globulin 2.9 g/dL (1.7-4.1); Glucose 123 mg/dL (80-110); HDL Cholesterol 77 mg/dL (40-60); HEMOLYSIS < 15 (0-50); LDL Cholesterol Calculated 92 mg/dL (<100); Potassium 3.9 mmol/L (3.4-5.1); Sodium 137 mmol/L (137-145); Total Protein 8.2 g/dL (6.3-8.2); Triglycerides 154 mg/dL (35-150)
[2025-01-23 13:48] LABS: Thyroid Stimulating Hormone 1.56 uIU/mL (0.47-4.68)
[2025-01-23 13:49] LABS: Prostate Specific Antigen 2.25 ng/mL (0.10-4.00)
[2025-01-29 08:37] LABS: Percent Free Testosterone 2.84 % (1.50-4.20); Testosterone Free 17.05 ng/dL (5.00-21.00); Testosterone Total 600.3 ng/dL (264.0-916.0)
== END ==
PROVIDERS: PCP Family Medicine; Referring Provider Family Medicine; Visit Provider Family Medicine
DX: Z12.5 Encounter for screening for malignant neoplasm of prostate (principal); E03.9 Hypothyroidism, unspecified; R79.89 Other specified abnormal findings of blood chemistry; Z86.79 Personal history of other diseases of the circulatory system; Z79.899 Other long term (current) drug therapy
CPT/HCPCS: 36415; 80053; 80061; 84153; 84402; 84403; 84443; 85025